=== PATIENT | female | born 1935 | race Caucasian/White ===

== ENCOUNTER → 2017-03-09 14:19 | Outpatient (CLI) | payer MEDICARE, OTHER, SELFPAY | PROVIDERS: Visit Provider Obstetrics & Gynecology | DX: N39.0 Urinary tract infection, site not specified (principal); R32 Unspecified urinary incontinence | CPT/HCPCS: 87077; 87086; 87088; 87186 ==

== ENCOUNTER 2017-05-31 16:39 | Emergency (ER) | payer MEDICARE, OTHER, SELFPAY ==
[2017-05-31 16:40] VITALS: BP 155/82; PULSE 51; RESP 16; TEMP 37.2; O2SAT 98; BMI 24.2
--- NOTE | 2017-05-31 17:01 | CT_ITS ---
STUDY: CT BRAIN WITHOUT CONTRAST REASON FOR EXAM: Female, 81 years old. FELL AND HIT HEAD ON CONCRETE, DOES NOT REMEMBER FALL, ON COUMADIN RADIATION DOSAGE (If Supplied By Facility): CTDIvol = ( 44.99 ) mGy, DLP = ( 745.49 ) mGycm TECHNIQUE: Transaxial CT imaging of the brain was performed without administration of intravenous contrast material. Individualized dose optimization techniques were used for this CT. COMPARISON: None. FINDINGS: There is a posterior scalp hematoma. Normal calvarium. Normal size ventricles and extra-axial spaces for the patient's age. There are areas of decreased attenuation within the white matter tracts of the supratentorial brain, consistent with microvascular disease changes. Normal basal ganglia and thalami. Normal brainstem. Normal cerebellum. There is a small acute subarachnoid hemorrhage of the right parietal lobe superiorly. It measures 17 x 1 mm. There are no findings of an acute ischemic infarction. There is mucosal thickening of the left maxillary sinus. CT/Brain/Head without Contrast IMPRESSION: There is a small acute subarachnoid hemorrhage of the right parietal lobe superiorly. N.B. : The above information has been verbally conveyed by Maggi Callahan MD to Al Xavier on 05/31/2017 18:19:37 (ET). Electronically Signed: Maggi Callahan MD at 18:07 EDT , Service support , N.B. : The above information has been verbally conveyed by Maggi Callahan MD to Al Xavier on 05/31/2017 18:19:37 (ET).
--- NOTE | 2017-05-31 17:05 | RAD_ITS ---
STUDY: X-RAY - PELVIS AND RIGHT HIP REASON FOR EXAM: Female, 81 years old. Fall TECHNIQUE: Radiological exam, hip, unilateral, with pelvis when performed; 2 or 3 views. COMPARISON: None. FINDINGS: There is a non-specific bowel gas pattern. Normal visualized soft tissue structures. There is diffuse osteopenia. There is narrowing with cortical sclerosis and osteophyte formation of the sacroiliac joint consistent with degenerative osteoarthritic changes. Normal bilateral superior and inferior pubic rami. There are degenerative changes of the pubic symphysis with articular narrowing and sclerosis. Normal bilateral ischial tuberosities. Normal visualized femoral head. Normal acetabulum. There is moderate articular joint space narrowing of the hip. RAD/Hip 2-3 Views with Pelvis IMPRESSION: No acute fracture is demonstrated. Electronically Signed: Maggi Callahan MD at 18:10 EDT , Service support ,
[2017-05-31 18:30] VITALS: BP 149/70; PULSE 110; RESP 20; O2SAT 94
[2017-05-31 18:38] LABS: International Normalized Ratio 2.6
--- NOTE | 2017-05-31 19:13 | ED.VISSUMM ---
- ER Visit Summary Date of Service: 05/31/17 Chief Complaint: Fall History of Present Illness: The patient is a [address] Blackwell. She reports that she tripped over dog leash and fell. She landed on her buttocks and hit her ahead. She does not have a loss of consciousness. She complains of a mild headache. However, she is on Coumadin for atrial fibrillation. She does not have a mechanical heart valve. She reports she has pain in her right buttock that is 5-10 severity. She denies any neck, back, shoulder, wrist, or hip pain. She is nauseated, but has not vomited. Physical Examination: Vitals: Stable. Afebrile. Head: Mild tenderness palpation in the occipital area of her scalp. No bleeding, abrasion, or laceration. Neck: No vertebral tenderness. Full ROM without difficulty. Cleared by NEXUS criteria. Back: No vertebral tenderness. General: A&O x 3. NAD. Cardiovascular exam: Tachycardic irregularly irregular rhythm with 2 out of 6 systolic murmur. Respiratory exam: Chest nontender. No crepitus. Clear to auscultation bilaterally. No wheezes or stridor. Abdominal exam: Soft, nontender, nondistended, normal bowel sounds. No pain in RUQ or LUQ specifically. No peritoneal signs. Extremity: Hematoma right buttock that is approximately 6 cm in diameter. No pain with range of motion. Test Results: CT brain shows a 17 x 1 mm right parietal lobe subarachnoid hemorrhage. Right hip/pelvis x-rays are negative. INR is 2.6. Emergency Department Course and Treatment: Patient refused pain medications. She is given K Centra IV and vitamin K p.o. She is remained stable with a normal neurologic exam while here. Treatment Plan: Family asked for transfer to [facility]. She was discussed with the ER physician there Dr. Quintero and the neurosurgeon Dr. Khoury. Disposition: Transferred in serious condition. Impression: 1. Fall. 2. Right parietal lobe subarachnoid hemorrhage, 17 x 1 mm. 3. INR of 2.6. 4. Atrial fibrillation. 5. Critical care time 30 minutes. This note was generated with [employer] dictation software. It may contain incorrect words, spelling, and punctuation that were not noted in review of the chart prior to signing ED Disposition - Plan for ED Patient: Chief Complaint: Head Injury Referrals: Raj Blackwell [Primary Care Provider] -
--- NOTE | 2017-05-31 19:16 | ED.DCSUM_ITS ---
- ER Visit Summary Date of Service: 05/31/17 Chief Complaint: Fall History of Present Illness: The patient is a [address] Blackwell. She reports that she tripped over dog leash and fell. She landed on her buttocks and hit her ahead. She does not have a loss of consciousness. She complains of a mild headache. However, she is on Coumadin for atrial fibrillation. She does not have a mechanical heart valve. She reports she has pain in her right buttock that is 5-10 severity. She denies any neck, back, shoulder, wrist, or hip pain. She is nauseated, but has not vomited. Physical Examination: Vitals: Stable. Afebrile. Head: Mild tenderness palpation in the occipital area of her scalp. No bleeding , abrasion, or laceration. Neck: No vertebral tenderness. Full ROM without difficulty. Cleared by NEXUS criteria. Back: No vertebral tenderness. General: A&O x 3. NAD. Cardiovascular exam: Tachycardic irregularly irregular rhythm with 2 out of 6 systolic murmur. Respiratory exam: Chest nontender. No crepitus. Clear to auscultation bilaterally. No wheezes or stridor. Abdominal exam: Soft, nontender, nondistended, normal bowel sounds. No pain in RUQ or LUQ specifically. No peritoneal signs. Extremity: Hematoma right buttock that is approximately 6 cm in diameter. No pain with range of motion. Test Results: CT brain shows a 17 x 1 mm right parietal lobe subarachnoid hemorrhage. Right hip/pelvis x-rays are negative. INR is 2.6. Emergency Department Course and Treatment: Patient refused pain medications. She is given K Centra IV and vitamin K p.o. She is remained stable with a normal neurologic exam while here. Treatment Plan: Family asked for transfer to [facility]. She was discussed with the ER physician there Dr. Quintero and the neurosurgeon Dr. Khoury. Disposition: Transferred in serious condition. Impression: 1. Fall. 2. Right parietal lobe subarachnoid hemorrhage, 17 x 1 mm. 3. INR of 2.6. 4. Atrial fibrillation. 5. Critical care time 30 minutes. This note was generated with [employer] dictation software. It may contain incorrect words, spelling, and punctuation that were not noted in review of the chart prior to signing ED Disposition - Plan for ED Patient: Chief Complaint: Head Injury Referrals: Raj Blackwell [Primary Care Provider] -
[2017-05-31 19:17] VITALS: BP 154/95; PULSE 112; RESP 14; O2SAT 94
[2017-05-31] MEDS: fentaNYL 100 MCG/2 ML Ampul 25 MCG IV (19:35)
[2017-05-31 19:37] VITALS: BP 137/75; PULSE 113; RESP 19; O2SAT 95
[2017-05-31] MEDS: Phytonadione (Vit K) 10 MG/ML Ampul PO (19:50)
== END 2017-05-31 20:06 | disposition short-term general hospital (02) ==
PROVIDERS: Emergency Provider Emergency Medicine; Family Provider Family Medicine; PCP Family Medicine
DX: S06.6X0A Traumatic subarachnoid hemorrhage without loss of consciousness, initial encounter (principal); I48.91 Unspecified atrial fibrillation; Z79.01 Long term (current) use of anticoagulants; I25.10 Atherosclerotic heart disease of native coronary artery without angina pectoris; I10 Essential (primary) hypertension; E78.00 Pure hypercholesterolemia, unspecified; Z95.1 Presence of aortocoronary bypass graft; Z79.82 Long term (current) use of aspirin; Z79.899 Other long term (current) drug therapy; W01.198A Fall on same level from slipping, tripping and stumbling with subsequent striking against other object, initial encounter; Y93.K1 Activity, walking an animal; Y92.89 Other specified places as the place of occurrence of the external cause; Y99.8 Other external cause status
CPT/HCPCS: 70450; 73502; 85610; 96374; 99285; C9132; J7030; A4216

== ENCOUNTER 2017-12-03 09:13 | Day surgery (SDC) | payer MEDICARE, OTHER, SELFPAY ==
[2017-12-01 14:10] VITALS: BP 134/64; PULSE 46; RESP 16; TEMP 36.9; O2SAT 98; BMI 24.5
[2017-12-01 16:38] LABS: Hematocrit 44.2 % (37-47); Hemoglobin 13.9 g/dl (12.0-15.0); Mean Corp Hgb Conc 31.4 g/gl (32-36); Mean Corpuscular Hgb 30.7 pg (27.0-32.0); Mean Corpuscular Volume 97.6 fL (81-99); Mean Platelet Vol. 10.9 fl (6.2-12.0); Platelet Count 191 K/mm3 (150-450); RBC Distribution Width CV 13.6 % (11.6-14.6); RBC Distribution Width SD 48.8 fl (35.1-43.9); Red Blood Count 4.53 M/mm3 (4.2-5.4); White Blood Count 7.7 K/mm3 (4.4-11.0)
[2017-12-01 16:42] LABS: Scan Indicated on CBC? Y/N NO
[2017-12-01 17:05] LABS: Anion Gap 7 (5-15); BUN 20 mg/dL (7-18); BUN/Creat Ratio 22.6 RATIO (10-20); Calcium,Total 9.5 mg/dL (8.5-10.1); Chloride 101 mmol/L (98-107); Creatinine, Serum 0.89 mg/dL (0.55-1.02); EST Glomerular Filtration Rate 65 mL/min (>60); Est Glom Filt Rate - Afr Amer 78 mL/min (>60); Estimated Creatinine Clearance 40.38 ml/min; Glucose 136 mg/dL (74-106); Potassium 4.1 mmol/L (3.5-5.1); Sodium Level 135 mmol/L (136-145)
[2017-12-03] VITALS (7 sets, daily range): BP systolic 112–151; BP diastolic 58–83; PULSE 71–90; RESP 16–18; TEMP 36.7–37.2; O2SAT 92–96; BMI 24.5
[2017-12-03 10:11] LABS: Bedside Glucose 117 mg/dL (70-110)
[2017-12-03 10:19] LABS: Hemoglobin A1c 6.1 % (4.2-6.3)
[2017-12-03 10:25] LABS: AST(SGOT) 27 U/L (15-37); Alanine Aminotransfer ALT/SGPT 18 U/L (13-56); Cholesterol 188 mg/dL (200); High Density Lipoprotein 39 mg/dL; Thyroid Stim Hormone (TSH) 3.38 uIU/mL (0.358-3.74); Triglycerides 197 mg/dL; Very Low Density Lipoprotein 39 mg/dL (5-40)
[2017-12-03 10:28] LABS: Vitamin B12 564 pg/mL (211-911)
--- NOTE | 2017-12-03 13:22 | PCM.OPRPT ---
Problem List (1) Cystocele Status: Acute Report of Operation Date of Procedure: 12/03/17 Pre-Operative Diagnosis: Cystocele, intolerant to office exams Post-Operative Diagnosis: Cystocele, intolerance to office exam Surgery/Procedure Performed:: EUA, pessary placement Description of Surgical Findings:: cystocele Type of Anesthesia:: MAC Anesthesiologist: Maik Santana Specimen's removed: none Estimated Blood Loss (mL): 0 Fluids Replaced: 300 ml Description of Procedure: Patient was brought to the OR and sign in performed. She was placed in the dorsal supine position and induced under MAC. She was repositioned into dorsal lithotomy. Betadine wash was applied to the perineum given prior hx of laceration at time of pessary placement/removal and sterile draped placed. An examination under anesthesia was performed with cystocele present. A 57mm Gellhorn pessary was placed without difficulty with improved tissue pliability from prior. The patient was awakened and transferred to the recovery room without complication. Sponge counts were correct x 2. - Complications none - Admit VTE Documentation VTE Present on Admission: No VTE Mechan Device Prophylaxis: SCD's VTE Pharm Prophylaxis ordered?: No
--- NOTE | 2017-12-03 13:31 | PCM.DC ---
- Discharge Diagnoses Current Active Problems: Current Active and Chronic Problems Cystocele (Acute) Reason(s) for Visit for Discharge Instructions: Pessary placement You will use the following diet at home:: No restrictions Your food should be the consistency of: Regular Discharge Activity: Return to Normal Activity May resume sexual activity in: No Restrictions Call your doctor if you observe: Shortness of breath, Chest pain, - - Vaginal bleeding, vaginal pain, vaginal discharge Allergies/Adverse Reactions: Allergies furosemide [From Lasix] Allergy (Verified 12/01/17 14:06) Unknown [id number] Reductase Inhibitor Allergy (Verified 12/01/17 14:06) Other Sulfa (Sulfonamide Antibiotics) Allergy (Verified 12/01/17 14:06) Unknown Medications to take at Discharge Acetaminophen [Tylenol] 650 mg PO Q4H PRN PRN 12/17/14 Ascorbic Acid [Vitamin C] 1,000 mg PO DAILY@0800 12/17/14 Aspirin [Adult Low Dose Aspirin EC] 81 mg PO DAILY 12/17/14 Carvedilol [Coreg (Beta Mikhail)] 12.5 mg PO BID 12/17/14 Ezetimibe [Zetia] 10 mg PO DAILY 12/17/14 Ferrous Sulfate 325 mg PO BIDCM 12/17/14 Levothyroxine [Synthroid] 25 mcg PO DAILY 12/17/14 Spironolactone [Aldactone] 12.5 mg PO DAILY 12/17/14 Magnesium Oxide [Mag-Ox 400] 400 mg PO DAILY@0800 #14 tablet 01/22/15 Warfarin [Coumadin] 4 mg PO DAILY@1700 #30 tablet 01/22/15 Omeprazole [Prilosec] 40 mg PO DAILY 05/31/17 Calcium Carb/Vitamin D [Caltrate-600 With Vit D Tab] 1 tab PO DAILY@0800 12/01/17 Vit C/Vit E AC/Lut/Copper/Zinc [Preservision Lutein Softgel] 2 tab PO BID 12/01/17 Primary Care Physician: Raj Blackwell DO [Primary Care Provider] - Test Results: Test results from this visit will be discussed in further detail at your follow-up appointment, if applicable. Please Follow Up With: Liz Hamilton MD - as needed
== END 2017-12-03 14:34 | disposition home or self-care (01) ==
LOC: SDC 09:15 → AC 09:17
PROVIDERS: Family Provider Family Medicine; PCP Family Medicine; Referring Provider Obstetrics & Gynecology; Visit Provider Obstetrics & Gynecology
PROC: (CPT 58120; principal; 2017-12-03 10:55)
DX: N81.10 Cystocele, unspecified (principal); I11.0 Hypertensive heart disease with heart failure; I50.9 Heart failure, unspecified; M19.90 Unspecified osteoarthritis, unspecified site; K21.9 Gastro-esophageal reflux disease without esophagitis; E78.00 Pure hypercholesterolemia, unspecified; F41.9 Anxiety disorder, unspecified; F31.9 Bipolar disorder, unspecified; E06.9 Thyroiditis, unspecified; I25.2 Old myocardial infarction; Z95.1 Presence of aortocoronary bypass graft; Z85.828 Personal history of other malignant neoplasm of skin; Z87.891 Personal history of nicotine dependence; Z79.01 Long term (current) use of anticoagulants; Z79.82 Long term (current) use of aspirin; Z79.899 Other long term (current) drug therapy
CPT/HCPCS: 00940; 57160; 36415; 80048; 80061; 82607; 82962; 83036; 84443; 84450; 84460; 85027; J7120

== ENCOUNTER → 2018-03-30 14:56 | Outpatient (CLI) | payer MEDICARE, OTHER, SELFPAY ==
[2017-12-03 09:43] VITALS: BMI 24.5
== END ==
PROVIDERS: Family Provider Family Medicine; PCP Family Medicine; Referring Provider Family Medicine; Visit Provider Family Medicine
DX: R19.7 Diarrhea, unspecified (principal)
CPT/HCPCS: 87177; 87209; 87493

== ENCOUNTER → 2018-05-05 14:58 | Outpatient (CLI) | payer MEDICARE, OTHER, SELFPAY ==
[2017-12-03 09:43] VITALS: BMI 24.5
[2018-05-05 17:43] LABS: CRP 4.33 mg/L (0.0-3.0)
[2018-05-07 16:08] LABS: Endomysial Antibody IgA Negative (Negative)
[2018-05-10 12:11] LABS: Immunoglobulin A 310 mg/dL (64-422); t-Transglutaminase IgA <2 U/mL (0-3)
== END ==
PROVIDERS: Family Provider Family Medicine; PCP Family Medicine; Referring Provider Internal Medicine Gastroenterology; Visit Provider Internal Medicine Gastroenterology
DX: R19.7 Diarrhea, unspecified (principal)
CPT/HCPCS: 36415; 82784; 83516; 86140; 86255

== ENCOUNTER 2019-10-06 13:36 | Emergency (ER) | payer MEDICARE, OTHER, SELFPAY ==
[2019-10-06 13:36] VITALS: BP 155/74; PULSE 78; RESP 18; TEMP 36.3; O2SAT 93; BMI 22.6
--- NOTE | 2019-10-06 13:40 | CT_ITS ---
STUDY: CT BRAIN WITHOUT CONTRAST REASON FOR EXAM: Female, 83 years old. FALL ON BLOOD THINNERS RADIATION DOSAGE (If Supplied By Facility): CTDIvol = ( 60.81 ) mGy, DLP = ( 1067.08 ) mGycm TECHNIQUE: Transaxial CT imaging of the brain was performed without administration of intravenous contrast material. Individualized dose optimization techniques were used for this CT. COMPARISON: Comparison is made with prior study dated 05/31/2017. FINDINGS: Normal soft tissue structures. Normal calvarium. There is mild cerebral atrophy with widening of the extra-axial spaces and ventricular dilatation. There are areas of decreased attenuation within the white matter tracts of the supratentorial brain, consistent with microvascular disease changes. Stable small bilateral lacunar infarcts in the basal ganglia. Normal brainstem. Normal cerebellum. There is no intracranial hemorrhage. There are no findings of an acute ischemic infarction. Atherosclerotic calcification of the vertebral arteries and cavernous portions of the internal carotid arteries bilaterally. Normal visualized paranasal sinuses. CT/Brain/Head without Contrast IMPRESSION: Chronic involutional changes of the brain. Electronically Signed: Memo Gusman, at 14:13 EDT , Service support ,
[2019-10-06 13:55] VITALS: O2SAT 97
--- NOTE | 2019-10-06 14:08 | ED.DCSUM_ITS ---
- ER Visit Summary Date of Service: 10/06/19 Chief Complaint: Fall, head injury History of Present Illness: The patient is a 83 F who presents after a fall. She states that she lost her balance and fell backwards. She hit the back of her head. This occurred this morning. No LOC. She really has minimal symptoms. She is here because she is on Coumadin for atrial fibrillation. Her INR today is 3.3. She did fall last week as it was another mechanical fall. She has some left rib pain but she had negative x-rays at that time. She still a bit sore in her left chest wall but denies any other symptoms. Physical Examination: Vital signs reviewed. HEENT exam unremarkable. Heart is regular rate and rhythm without murmurs. Lungs are clear to auscultation. Abdomen is soft and nontender. Extremities reveal no edema. Skin exam normal. Neurologic exam normal. GCS 15. Test Results: CAT scan of the head shows chronic changes. Emergency Department Course and Treatment: Patient overall appears well. CAT scan is negative for any traumatic injury. The family states that they will take her to her primary doctor for further testing as to why she keeps falling. Patient looks and feels well does not want stay in the hospital. She will follow-up with her PCP. Treatment Plan: [] Disposition: Discharge Impression: Scalp contusion This note was generated with [employer] dictation software. It may contain incorrect words, spelling, and punctuation that were not noted in review of the chart prior to signing ED Disposition - Plan for ED Patient: Disposition: Home or Assisted Living Instructions: ED Fall Uncertain Cause Referrals: Raj Blackwell DO [Primary Care Provider] -
[2019-10-06 14:53] VITALS: BP 118/63; PULSE 84; RESP 16; O2SAT 97
== END 2019-10-06 14:53 | disposition home or self-care (01) ==
PROVIDERS: Emergency Provider Emergency Medicine; PCP Family Medicine
DX: S00.03XA Contusion of scalp, initial encounter (principal); I48.91 Unspecified atrial fibrillation; W19.XXXA Unspecified fall, initial encounter; Z79.01 Long term (current) use of anticoagulants
CPT/HCPCS: 70450; 99282

== ENCOUNTER 2020-03-23 11:28 | Outpatient (RCR) | payer MEDICARE, OTHER, SELFPAY ==
[2020-03-09 10:26] VITALS: BMI 22.5
== END 2020-03-23 23:59 ==
LOC: IMMUN 11:28
PROVIDERS: PCP Family Medicine; Referring Provider Family Medicine; Visit Provider Family Medicine
DX: Z23 Encounter for immunization (principal)
CPT/HCPCS: 0011A; 0012A; 91301

== ENCOUNTER 2021-02-09 12:42 | Emergency (ER) | payer MEDICARE, OTHER, SELFPAY ==
[2020-03-09 10:26] VITALS: BMI 22.5
[2021-02-09 12:43] VITALS: BP 149/89; PULSE 97; RESP 16; TEMP 37; O2SAT 91; BMI 22.6
--- NOTE | 2021-02-09 12:59 | CT_ITS ---
STUDY: CT BRAIN WITHOUT CONTRAST REASON FOR EXAM: Female, 85 years old. Head injury RADIATION DOSAGE (If Supplied By Facility): CTDIvol = ( 44.99 ) mGy, DLP = ( 796.11 ) mGycm TECHNIQUE: Transaxial CT imaging of the brain was performed without administration of intravenous contrast material. Individualized dose optimization techniques were used for this CT. COMPARISON: 10/06/2019. FINDINGS: Normal soft tissue structures. Normal calvarium. There is mild cerebral atrophy with widening of the extra-axial spaces and ventricular dilatation. There are areas of decreased attenuation within the white matter tracts of the supratentorial brain, consistent with microvascular disease changes. 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 Normal brainstem. Normal cerebellum. There is no intracranial hemorrhage. There are no findings of an acute ischemic infarction. Atherosclerotic calcifications of the cavernous internal carotid arteries. Mucosal thickening of the left maxillary sinus. CT/Brain/Head without Contrast IMPRESSION: 1. Chronic involutional changes of the brain. 2. No acute intracranial process. 3. Mild sinus disease. Electronically Signed: Mundo Gibson, at 13:59 EST Tel , Service support ,
--- NOTE | 2021-02-09 12:59 | CT_ITS ---
STUDY: CT CHEST WITHOUT CONTRAST REASON FOR EXAM: Female, 85 years old. Trauma RADIATION DOSAGE (If Supplied By Facility): CTDIvol = ( 8.60 ) mGy, DLP = ( 249.12 ) mGycm TECHNIQUE: Transaxial imaging was performed without the administration of intravenous contrast material. Individualized dose optimization techniques were used for this CT. COMPARISON: None. FINDINGS: Hypoventilatory changes in the lung bases. Mild bronchiectatic changes in the lower lungs. Right middle lobe calcified granulomas. No evidence of pneumothorax or pleural effusions. No focal infiltrate is seen. Borderline heart size. Status post mediastinotomy and CABG. Coronary calcifications. No evidence of pericardial effusion. Normal mediastinum. Normal hilar regions. Normal unenhanced pulmonary arteries. There is atherosclerotic calcification of the aortic arch with tortuosity and elongation of the aortic arch and descending thoracic aorta. Demineralization of the osseous structures. Increased kyphosis. Mild compression fractures of lower thoracic vertebra probably chronic. Small hiatal hernia. No demonstrated acute osseous changes. CT/Chest without Contrast IMPRESSION: 1. No evidence of pulmonary contusion, pneumothorax or pleural effusions. 2. No demonstrated acute fracture. 3. Status post CABG. Electronically Signed: Mundo Gibson, at 14:16 EST Tel , Service support ,
--- NOTE | 2021-02-09 13:05 | EX.ED.DYSGE1 ---
HPI History of Present Illness Chief Complaint: Fall Detail of Chief Complaint: Fall with head injury and left chest injury Informant: patient Narrative Narrative: Patient emergency department after sustaining a fall this morning. Patient apparently was reaching over to tie a garbage bag and lost her balance and fell and hit her head. Patient is on Coumadin. She sustained a laceration to her left periorbital region. Patient also complaining of pain to her left ribs. She denies shortness of breath. She denies abdominal pain. Patient was able to get up and has been ambulatory. She did not have loss of consciousness. Her last INR was about a month ago. She is unsure of her last tetanus. [facility] Medical History (Updated 02/09/21 @ 14:[address] Catrachita Amador DO) BCC (basal cell carcinoma of skin) Diabetes HTN (hypertension) Hypothyroid SCCA (squamous cell carcinoma) of skin Home Medications acetaminophen [Tylenol] 650 mg PO Q4H PRN PRN 12/17/14 [History Last Taken Unknown] ascorbic acid (vitamin C) [Vitamin C] 1,000 mg PO DAILY@0800 12/17/14 [History Last Taken Unknown] aspirin [Adult Low Dose Aspirin] 81 mg PO DAILY 12/17/14 [History Last Taken Unknown] carvedilol 12.5 mg PO BID 12/17/14 [History Last Taken 12/03/17 07:00] ezetimibe 10 mg PO DAILY 12/17/14 [History Last Taken Unknown] ferrous sulfate 325 mg PO BIDCM 12/17/14 [History Last Taken Unknown] levothyroxine 25 mcg PO DAILY 12/17/14 [History Last Taken 12/03/17 07:00] spironolactone 12.5 mg PO DAILY 12/17/14 [History Last Taken 12/03/17 07:00] magnesium oxide 400 mg PO DAILY@0800 #14 tablet 01/22/15 [Rx Last Taken Unknown] warfarin [Jantoven] 4 mg PO DAILY@1700 #30 tablet 01/22/15 [Rx Last Taken Unknown] calcium carbonate-vitamin D3 [Caltrate-600 With Vit D Tab] 1 tab PO DAILY@0800 12/01/17 [History Last Taken Unknown] vit C-vit S-eaeiym-ccrh-lutein [Preservision Lutein Softgel] 2 tab PO BID 12/01/17 [History Last Taken Unknown] lidocaine HCl 10 ml PO Q2H PRN PRN #1 tube 05/24/20 [Rx Last Taken Unknown] omeprazole 20 mg capsule,delayed release 40 mg PO DAILY PRN 06/07/20 [History Last Taken Unknown] Allergy/AdvReac Type Severity Reaction Status Date / Time furosemide [From Lasix] Allergy Unknown Verified 02/09/21 12:46 Whtfkvu-MWB-KtV Reductase Allergy Other Verified 02/09/21 12:46 Inhibitor [Fqmbffk-Bld-Gfu Reductase Inhibitor] Sulfa (Sulfonamide Allergy Unknown Verified 02/09/21 12:46 Antibiotics) Family History Other No significant family history no significant family Surgical History H/O carotid endarterectomy H/O: hysterectomy History of cholecystectomy S/P triple vessel bypass Social History Smoking Status: Never smoker ROS ROS ED Constitutional Constitutional ED: Reports systems reviewed and no addt'l complaints, except as documented; Denies body ache(s), change in weight or chills Eyes Eyes: Denies acute decrease in peripheral vision, change in vision, double vision or loss of vision ENT ENT ED: Reports none and other Details: Nosebleed, laceration left upper eyelid and upper cheek ; Denies ear pain, lip swelling, loss taste/smell, neck pain, otalgia or sore throat Cardiovascular Cardiovascular: Reports none; Denies abdominal pain, chest pain with activity, leg edema, lightheadedness, palpitations, rapid heart rate or syncope Respiratory/Chest Respiratory/Chest: Reports none; Denies change in mental status, dry cough, dyspnea, hemoptysis, shortness of breath at rest or shortness of breath with exertion Gastrointestinal Gastrointestinal: Reports none; Denies abdominal pain, change in stool character, diarrhea, hematemesis, hematochezia, melena, rectal bleeding or vomiting Genitourinary Genitourinary ED: Reports none; Denies abdominal discomfort, anuria, dysuria, genital pain or polyuria Musculoskeletal Musculoskeletal: Reports none and back pain; Denies arthralgias, difficulty walking, extremity pain, muscle weakness or myalgias Integumentary Reports none; Denies abscess or rash Neurologic Neurologic: Reports none and headache(s); Denies abnormal gait, confusion, focal weakness, frequent falls, loss of vision, numbness, paresthesias, radicular pain, vertigo or weakness Psychiatric Psychiatric: Reports systems reviewed and no addt'l complaints, except as documented and none; Denies behavioral changes, confusion, difficulty concentrating, hallucinations, suicidal ideation, tactile hallucinations or visual hallucinations Endocrine Endocrinology: Denies none, cold intolerance, excessive sweating, fatigue or heat intolerance Hematologic/Lymphatic Hematologic/Lymphatic: Reports none; Denies anemia, easy bleeding or easy bruising Allergic/Immunologic Allergic/Immunologic ED: Denies as per HPI, none, lip swelling, mouth swelling, throat swelling, tongue swelling or hives EXAM Physical Exam Const Vital Signs: 02/09/21 12:43 02/09/21 14:32 Temperature 98.6 F Temperature Source Temporal Pulse Rate 97 Respiratory Rate 16 Respiratory Depth Normal Blood Pressure 149/89 H Blood Pressure Mean 109 Pulse Ox 91 Oxygen Delivery Method Room Air Positive well nourished and well developed General Appearance ED: well developed and NAD HEENT Reports TM's clear and moist mucous membranes HEENT Narrative: Patient has ecchymosis and bruising about the left orbit with a 2.5 cm laceration over the lateral left upper eyelid and 2 cm laceration onto the upper cheek. No bony tenderness on exam. No C-spine tenderness on exam. normocephalic, atraumatic and trauma; Negative for tenderness Tympanic Membrane ED: Yes TM's clear Eyes PERRL and EOMs intact bilaterally General Eye ED: Negative for pale conjunctiva or scleral icterus Neck no lymphadenopathy, supple and no JVD General: Negative for tenderness Chest Wall palpation of chest normal Chest Narrative: Tenderness palpation of posterior left chest wall that reproduces her pain. No subcutaneous emphysema or crepitus noted. Chest: Negative for tenderness Resp normal respiratory effort and clear to auscultation bilaterally Effort and Inspection: Negative for respiratory distress or pain with movement Auscultation: Negative for rhonchi, wheezes or diminished lung sounds Cardio regular rate, regular rhythm, S1 normal heart sound, S2 normal heart sound and no murmurs Peripheral Pulses: pulses 2+ throughout GI normal to inspection, nondistended, normoactive bowel sounds, soft to palpation, non-tender, non-distended and no masses Back/Spine no CVA tenderness and no thoracic nor lumbar tenderness Extremity normal to inspection General Extremety ED: Negative for edema General Extremity: Negative for edema Neuro oriented x3, CN's II-XII intact bilaterally, no sensory deficits noted and gait normal Sensorium / Orientation: awake, alert, oriented to person, oriented to place and oriented to time Motor Exam: strength 5/5 throughout and strength abnormal Psych mental status grossly normal Skin no rashes or lesions noted and no wounds MDM MDM MDM Narrative Medical decision making narrative: CT scan of the brain without contrast was unremarkable. Patient also had CT of chest with no evidence of rib fractures or pneumothorax. INR was 2.4. H&H was unremarkable. Patient advised to follow-up with primary care physician in 5 to 7 days for suture removal. Patient to return if increasing pain, redness, swelling, purulent drainage, or conditions worsen anyway. Lab Data Labs: Laboratory Results - last 24 hr 02/09/21 02/09/21 13:20 13:20 WBC 11.2 H RBC 4.76 Hgb 15.2 H Hct 46.6 MCV 97.9 MCH 31.9 MCHC 32.6 RDW Std Deviation 49.3 H RDW Coeff of Marianela 13.4 Plt Count 159 MPV 10.4 PT 25.7 H INR 2.4 Radiography Diagnostic Testing: Clinical Impression(s) from Imaging Studies Brain CT 02/09/21 12:59 IMPRESSION: 1. Chronic involutional changes of the brain. 2. No acute intracranial process. 3. Mild sinus disease. Electronically Signed: Mundo Gibson at 13:59 EST Tel , Service support , Chest CT 02/09/21 12:59 IMPRESSION: 1. No evidence of pulmonary contusion, pneumothorax or pleural effusions. 2. No demonstrated acute fracture. 3. Status post CABG. Electronically Signed: Mundo Gibson at 14:16 EST Tel , Service support , Procedures Lacerations Left facial laceration: Length: 1.77 in Depth: Sub Q Shape: Linear Prep: Sterile Conditions Laceration repair: Irrigated, Lidocaine, Local and Skin sutures Irrigated (ml): 50 Number of Sutures/Robin: 6 Suture Information: Ethilon, Simple and 6-0 Comment: Patient has 2 lacerations one measuring 2.5 cm and 1 measuring 2 cm with total length of 4.5 cm. Wounds sterilely draped and prepped. Wounds cleansed with Shur-Clens and irrigated with copious saline. Using 6-0 nylon a total of of 6 single interrupted sutures placed with good wound edge approximation. Patient tolerated procedure well Discharge Plan Triage Chief Complaint: Fall ED Provider: Catrachita Amador Dx/Rx/DC Orders Clinical Impression: Fall, Closed head injury, Back contusion, Face lacerations Instructions: ED Mechanical Fall, ED Head Injury (Adult), ED Laceration: All Closures, ED Contusion, Rib Prescriptions: No Action acetaminophen [Tylenol] 325 MG tablet 650 mg PO Q4H PRN PRN (Reason: fever) RF: 0 carvedilol 12.5 MG tablet 12.5 mg PO BID RF: 0 aspirin [Adult Low Dose Aspirin] 81 MG tablet,delayed release (DR/EC) 81 mg PO DAILY RF: 0 spironolactone 25 MG tablet 12.5 mg PO DAILY RF: 0 levothyroxine 25 MCG tablet 25 mcg PO DAILY RF: 0 ascorbic acid (vitamin C) [Vitamin C] 500 MG tablet 1,000 mg PO DAILY@0800 RF: 0 ferrous sulfate 325 MG tablet 325 mg PO BIDCM RF: 0 ezetimibe 10 MG tablet 10 mg PO DAILY RF: 0 warfarin [Jantoven] 4 MG tablet 4 mg PO DAILY@1700 Qty: 30 RF: 0 magnesium oxide 400 MG tablet 400 mg PO DAILY@0800 Qty: 14 RF: 0 omeprazole 20 mg capsule,delayed release(DR/EC) 40 mg PO DAILY PRNRF: 0 vit C-vit T-tzuypm-whyu-lutein [PreserVision Lutein] 1 EACH capsule 2 tab PO BID RF: 0 calcium carbonate-vitamin D3 [Caltrate with Vitamin D3] 1 TAB tablet 1 tab PO DAILY@0800 RF: 0 lidocaine HCl 15 ML solution 10 ml PO Q2H PRN PRN (Reason: pain) Qty: 1 RF: 5 Primary Care Provider: Raj Blackwell Referrals: Raj Blackwell DO [Primary Care Provider] - 5 Days for suture removal Disposition Disposition: Home, Self Care
[2021-02-09 13:30] LABS: Hematocrit 46.6 % (37-47); Hemoglobin 15.2 g/dL (12.0-15.0); Mean Corp Hgb Conc 32.6 g/dL (32-36); Mean Corpuscular Hgb 31.9 pg (27.0-32.0); Mean Corpuscular Volume 97.9 fL (81-99); Mean Platelet Vol. 10.4 fl (6.2-12.0); Platelet Count 159 K/mm3 (150-450); RBC Distribution Width CV 13.4 % (11.6-14.6); RBC Distribution Width SD 49.3 fl (35.1-43.9); Red Blood Count 4.76 M/mm3 (4.2-5.4); White Blood Count 11.2 K/mm3 (4.4-11.0)
[2021-02-09 14:17] LABS: International Normalized Ratio 2.4; Prothrombin Time (Protime)PT. 25.7 SECONDS (11.7-14.9)
[2021-02-09] MEDS: Lidocaine/Epi/Tetracaine 50 ML 1 APPLIC TOPICAL (14:31)
[2021-02-09 15:15] VITALS: BP 129/78
== END 2021-02-09 15:15 | disposition home or self-care (01) ==
PROVIDERS: Emergency Provider Emergency Medicine; PCP Family Medicine
DX: S20.229A Contusion of unspecified back wall of thorax, initial encounter (principal); S01.81XA Laceration without foreign body of other part of head, initial encounter; Z95.1 Presence of aortocoronary bypass graft; W19.XXXA Unspecified fall, initial encounter
CPT/HCPCS: 12013; 70450; 71250; 85027; 85610; 99284

== ENCOUNTER 2022-04-12 07:20 | Emergency (ER) | payer MEDICARE, OTHER, SELFPAY ==
[2020-03-09 10:26] VITALS: BMI 22.5
[2022-04-12 07:20] VITALS: BP 160/88; PULSE 95; RESP 16; TEMP 36.2; O2SAT 94
[2022-04-12 07:29] VITALS: BMI 22.4
--- NOTE | 2022-04-12 07:33 | EX.ED.DYSGE1 ---
HPI History of Present Illness Chief Complaint: General Illness Detail of Chief Complaint: Left eye pain Informant: patient Narrative Narrative: Patient presents the emergency department complaint of left eye pain that started yesterday around 4 PM. Patient thinks the pain came on rather suddenly. She complains of some drainage from the eye and redness. She denies trauma or injury to the eye. She denies foreign body sensation. She does complain of some photophobia. She denies headache currently. She did have pain neck and radiated towards her left ear and druze. Patient is on Coumadin and her last INR was 4 days ago and was 3.0. Patient also states that she had some blood on her diaper pad this morning that is believed to come from urine it was just blood discolored urine that looked like. Patient's had prior hysterectomy. She denies rectal bleeding. Patient today feeling somewhat shaky and more weak than usual. [facility] Medical History (Updated 04/12/22 @ 08:[address] Catrachita Amador, DO) BCC (basal cell carcinoma of skin) Diabetes HTN (hypertension) Hypothyroid SCCA (squamous cell carcinoma) of skin Home Medications acetaminophen 325 mg tablet (Tylenol) 650 mg PO Q4H PRN PRN fever 12/17/14 [History Last Taken Unknown] ascorbic acid (vitamin C) 500 mg tablet (Vitamin C) 1,000 mg PO DAILY@0800 12/17/14 [History Last Taken Unknown] aspirin 81 mg tablet,delayed release (Adult Low Dose Aspirin) 81 mg PO DAILY 12/17/14 [History Last Taken Unknown] carvedilol 12.5 mg tablet 12.5 mg PO BID 12/17/14 [History Last Taken 12/03/17 07:00] ezetimibe 10 mg tablet 10 mg PO DAILY 12/17/14 [History Last Taken Unknown] ferrous sulfate 325 mg (65 mg iron) tablet 325 mg PO BIDCM 12/17/14 [History Last Taken Unknown] levothyroxine 25 mcg tablet 25 mcg PO DAILY 12/17/14 [History Last Taken 12/03/17 07:00] spironolactone 25 mg tablet 12.5 mg PO DAILY 12/17/14 [History Last Taken 12/03/17 07:00] magnesium oxide 400 mg (241.3 mg magnesium) tablet 400 mg PO DAILY@0800 #14 TABLETS 01/22/15 [Rx Last Taken Unknown] warfarin 4 mg tablet (Jantoven) 4 mg PO DAILY@1700 #30 TABLETS 01/22/15 [Rx Last Taken Unknown] calcium carbonate 600 mg-vitamin D3 20 mcg (800 unit) tablet (Caltrate with Vitamin D3) 1 tab PO DAILY@0800 12/01/17 [History Last Taken Unknown] vit C 226 mg-vit E 90 mg-copper 0.8 mg-zinc oxide-lutein 5 mg capsule (PreserVision Lutein) 2 tab PO BID 12/01/17 [History Last Taken Unknown] lidocaine HCl 2 % mucosal solution 10 ml PO Q2H PRN PRN pain #1 tube 05/24/20 [Rx Last Taken Unknown] omeprazole 20 mg capsule,delayed release 40 mg PO DAILY PRN 06/07/20 [History Last Taken Unknown] cephalexin 500 mg capsule 500 mg PO Q6 #28 CAPSULES 04/12/22 [Rx Last Taken Unknown] Allergy/AdvReac Type Severity Reaction Status Date / Time furosemide [From Lasix] Allergy Unknown Verified 02/09/21 12:46 Gbogfft-LCL-GmG Reductase Allergy Other Verified 02/09/21 12:46 Inhibitor [Zyoocwk-Xcb-Qli Reductase Inhibitor] Sulfa (Sulfonamide Allergy Unknown Verified 02/09/21 12:46 Antibiotics) Family History Other No significant family history no significant family Surgical History H/O carotid endarterectomy H/O: hysterectomy History of cholecystectomy S/P triple vessel bypass Social History Smoking Status: Never smoker ROS ROS ED Review of Systems ROS Unobtainable: other Constitutional Constitutional ED: Reports lethargy; Denies chills, fever(s), sweats or weight loss Eyes Eyes: Reports other Details: Pain to left eye and redness and drainage from left eye ; Denies blurry vision, change in vision or diplopia ENT ENT ED: Denies rhinorrhea or sore throat Cardiovascular Cardiovascular: Denies chest pain, orthopnea or racing heartbeat Respiratory/Chest Respiratory/Chest: Denies cough, dyspnea, dyspnea on exertion, orthopnea or sputum Gastrointestinal Gastrointestinal: Denies abdominal pain, diarrhea, nausea or vomiting Genitourinary Genitourinary ED: Reports hematuria; Denies dysuria or urinary frequency Musculoskeletal Musculoskeletal: Denies arthralgias, back pain, myalgias or neck pain Integumentary Denies abscess, Abrasions or rash Neurologic Neurologic: Denies headache(s) or weakness Psychiatric Psychiatric: Denies anxiety, depression or suicidal thoughts Endocrine Endocrinology: Denies polydipsia, polyphagia or polyuria Hematologic/Lymphatic Hematologic/Lymphatic: Denies easy bleeding, easy bruising or lymphadenopathy Allergic/Immunologic Allergic/Immunologic ED: Denies mouth swelling, tongue swelling or urticaria EXAM Physical Exam Const Vital Signs: 04/12/22 07:20 04/12/22 07:22 Temperature 97.2 F L Temperature Source Temporal Pulse Rate 95 Respiratory Rate 16 Respiratory Effort Normal Respiratory Pattern Normal Blood Pressure 160/88 H Blood Pressure Mean 112 Pulse Ox 94 Oxygen Delivery Method Room Air Positive well nourished and well developed General Appearance ED: well developed and NAD HEENT Reports TM's clear and moist mucous membranes normocephalic and atraumatic; Negative for trauma or tenderness Tympanic Membrane ED: Yes TM's clear Eyes PERRL and EOMs intact bilaterally Eyes Narrative: Patient does have conjunctival erythema to the left eye. She does have some yellow-green drainage noted. No foreign bodies noted. General Eye ED: Negative for pale conjunctiva or scleral icterus Neck no lymphadenopathy, supple and no JVD General: Negative for tenderness Chest Wall inspection of chest normal and palpation of chest normal Chest: Negative for tenderness Resp normal respiratory effort and clear to auscultation bilaterally Effort and Inspection: Negative for respiratory distress or pain with movement Auscultation: Negative for rhonchi, wheezes or diminished lung sounds Cardio regular rate, regular rhythm, S1 normal heart sound, S2 normal heart sound and no murmurs Peripheral Pulses: pulses 2+ throughout GI normal to inspection, nondistended, normoactive bowel sounds, soft to palpation, non-tender, non-distended and no masses Back/Spine no CVA tenderness and no thoracic nor lumbar tenderness Extremity normal to inspection General Extremety ED: Negative for edema General Extremity: Negative for edema Neuro oriented x3, CN's II-XII intact bilaterally, no sensory deficits noted and gait normal Sensorium / Orientation: awake, alert, oriented to person, oriented to place and oriented to time Motor Exam: strength 5/5 throughout and strength abnormal Psych mental status grossly normal Skin no rashes or lesions noted and no wounds MDM MDM MDM Narrative Medical decision making narrative: On arrival patient had a visual acuity in the left eye was 20/30 with her eyeglasses on. 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 Patient had the eyelids everted and there was no foreign bodies noted. She had tetracaine applied to the left eye and the eye was stained with fluorescein. Patient was noted to have a corneal abrasion at the 3 o'clock position on the cornea. Patient also had her eye pressure checked and it was 22 in the left eye. Patient had a urine straight cath which did show signs of hematuria and elevated WBCs and +1 bacteria. I did send off a culture. I will start her on Keflex. Her CBC with differential showed a normal white count of 10.5 with a hemoglobin of 15.8. Platelets were 183. INR was 2.6. Chemistries unremarkable. I did discuss case with ophthalmology on-call Dr. Gomez who asked that we refer patient to his office as he is currently in the office and he will see her today. I will start her on gentamicin ophthalmic drops. Patient will be started on Keflex for UTI. Daughter is comfortable taking patient home as she does live with her and can care for her. Daughter will take patient right over to ophthalmology's office. Lab Data Attestation: I reviewed the patient's lab results. Labs: Laboratory Results - last 24 hr 04/12/22 04/12/22 04/12/22 07:49 07:49 07:49 WBC 10.5 RBC 5.03 Hgb 15.8 H Hct 49.6 H MCV 98.6 MCH 31.4 MCHC 31.9 L RDW Std Deviation 47.7 H RDW Coeff of Marianela 13.1 Plt Count 183 MPV 10.6 Immature Gran % (Auto) 0.300 Neut % (Auto) 80.4 H Lymph % (Auto) 11.8 L Stephens % (Auto) 4.9 Eos % (Auto) 2.3 Baso % (Auto) 0.3 Absolute Neuts (auto) 8.5 H Absolute Lymphs (auto) 1.24 Nucleated RBC % 0 PT 27.1 H INR 2.6 Sodium 133 L Potassium 5.2 H Chloride 100 Carbon Dioxide 26.0 Anion Gap 7 BUN 24 H Creatinine 0.89 Estim Creat Clear Calc 33.66 Est GFR (MDRD) Af Amer 77 Est GFR (MDRD) Non-Af 64 BUN/Creatinine Ratio 27.1 H Glucose 147 H Calcium 9.8 Urine Color Urine Clarity Urine pH Ur Specific [place] Urine Protein Urine Glucose (UA) Urine Ketones Urine Occult Blood Urine Nitrite Urine Bilirubin Urine Urobilinogen Ur Leukocyte Esterase Urine RBC Urine WBC Ur Squamous Epith Cells Urine Bacteria Urine Mucus 04/12/22 08:03 WBC RBC Hgb Hct MCV MCH MCHC RDW Std Deviation RDW Coeff of Marianela Plt Count MPV Immature Gran % (Auto) Neut % (Auto) Lymph % (Auto) Stephens % (Auto) Eos % (Auto) Baso % (Auto) Absolute Neuts (auto) Absolute Lymphs (auto) Nucleated RBC % PT INR Sodium Potassium Chloride Carbon Dioxide Anion Gap BUN Creatinine Estim Creat Clear Calc Est GFR (MDRD) Af Amer Est GFR (MDRD) Non-Af BUN/Creatinine Ratio Glucose Calcium Urine Color Yellow Urine Clarity Sl. Cloudy Urine pH 7.0 Ur Specific [place] 1.010 Urine Protein 30 H Urine Glucose (UA) Normal Urine Ketones Negative Urine Occult Blood 250 H Urine Nitrite Negative Urine Bilirubin Negative Urine Urobilinogen Normal Ur Leukocyte Esterase 500 H Urine RBC 50-100 SEEN Urine WBC 50-100 SEEN Ur Squamous Epith Cells 0 SEEN Urine Bacteria 1+ Urine Mucus 0 SEEN Discharge Plan Triage Chief Complaint: General Illness ED Provider: Catrachita Amador Dx/Rx/DC Orders Clinical Impression: Acute left eye pain, Abrasion of cornea, left, Acute UTI, Hematuria Instructions: ED Corneal Abrasion, ED Hematuria, ED Cystitis Female Adult Prescriptions: New cephalexin [cephalexin] 500 mg capsule 500 mg PO Q6 Qty: 28 0RF No Action acetaminophen [Tylenol] 325 MG tablet 650 mg PO Q4H PRN PRN (Reason: fever) carvedilol 12.5 MG tablet 12.5 mg PO BID aspirin [Adult Low Dose Aspirin] 81 MG tablet,delayed release (DR/EC) 81 mg PO DAILY spironolactone 25 MG tablet 12.5 mg PO DAILY levothyroxine 25 MCG tablet 25 mcg PO DAILY ascorbic acid (vitamin C) [Vitamin C] 500 MG tablet 1,000 mg PO DAILY@0800 ferrous sulfate 325 MG tablet 325 mg PO BIDCM ezetimibe 10 MG tablet 10 mg PO DAILY warfarin [Jantoven] 4 MG tablet 4 mg PO DAILY@1700 Qty: 30 0RF magnesium oxide 400 MG tablet 400 mg PO DAILY@0800 Qty: 14 0RF omeprazole 20 mg capsule,delayed release(DR/EC) 40 mg PO DAILY PRN vit W-I-gdoxmj-zinc-lutein [PreserVision Lutein] 1 EACH capsule 2 tab PO BID calcium carbonate-vitamin D3 [Caltrate with Vitamin D3] 1 TAB tablet 1 tab PO DAILY@0800 lidocaine HCl 15 ML solution 10 ml PO Q2H PRN PRN (Reason: pain) Qty: 1 5RF Rx Instructions: apply 2 tsp to inner lip sore, swoosh and spit, q2 hours prn pain Primary Care Provider: Raj Blackwell Referrals: Raj Blackwell DO [Primary Care Provider] - Giacomo Gomez MD [Med Staff - Active Staff] - As soon as possible Activity Restrictions/Additional Instructions: Go directly to the [facility] for evaluation by program writer. Disposition Disposition: Home, Self Care
[2022-04-12 08:02] LABS: Absolute Lymphocyte Count 1.24 X10^3/uL (0.83-4.51); Absolute Neutrophil Count 8.5 X10^3/uL (2.0-7.7); Basophil# 0.03 X10^3/uL; Basophil% 0.3 % (0-1); Eosinophil# 0.24 X10^3/uL; Eosinophils% 2.3 % (0-5); Hematocrit 49.6 % (37-47); Hemoglobin 15.8 g/dL (12.0-15.0); Lymphocyte # 1.24 X10^3/ul (0.83-4.51); Lymphocyte % 11.8 % (19-41); Mean Corp Hgb Conc 31.9 g/dL (32-36); Mean Corpuscular Hgb 31.4 pg (27.0-32.0); Mean Corpuscular Volume 98.6 fL (81-99); Mean Platelet Vol. 10.6 fl (6.2-12.0); Monocyte# 0.52 X10^3/uL; Monocyte% 4.9 % (0-10); NRBC Flagged by Analyzer 0 % (0-5); Neutrophil # 8.46 X10^3/uL (2.7-7.7); Neutrophil % 80.4 % (47-70); Platelet Count 183 K/mm3 (150-450); RBC Distribution Width CV 13.1 % (11.6-14.6); RBC Distribution Width SD 47.7 fl (35.1-43.9); Red Blood Count 5.03 M/mm3 (4.2-5.4); White Blood Count 10.5 K/mm3 (4.4-11.0)
[2022-04-12 08:05] LABS: Mucous, Urine 0 SEEN /hpf (<or=2+); Squamous Epithelial Cells - UA 0 SEEN /hpf (5-10)
[2022-04-12] MEDS: Fluorescein 1 MG STRIP 1 STRIP LEFT EYE (08:06)
[2022-04-12] MEDS: Tetracaine 0.5% Ophthalmic Bottle 1 DRP LEFT EYE (08:06)
[2022-04-12 08:14] LABS: International Normalized Ratio 2.6; Prothrombin Time (Protime)PT. 27.1 SECONDS (11.7-14.9)
[2022-04-12 08:14] LABS: Color, Urine Yellow (Yellow); Glucose, Dipstick Normal (Normal); Ketone-Dipstick Negative (Negative); Leukocyte Esterase-Dipstick 500 /ul (Negative); Nitrite-Dipstick Negative (Negative); Occult Blood-Urine 250 /ul (Negative); Protein-Dipstick 30 mg/dl (Negative); Urine Bilirubin Dipstick Negative (Negative); Urine Clarity Sl. Cloudy (Clear); Urine Urobilinogen Normal (Normal)
[2022-04-12 08:30] LABS: Red Blood Cells-Urine 50-100 SEEN /hpf (0-5); White Blood Cells 50-100 SEEN /hpf (0-5)
[2022-04-12 08:33] LABS: Bacteria 1+ /hpf (None Seen)
[2022-04-12 08:40] LABS: Anion Gap 7 (5-15); BUN 24 mg/dL (7-18); BUN/Creat Ratio 27.1 RATIO (10-20); Calcium,Total 9.8 mg/dL (8.5-10.1); Chloride 100 mmol/L (98-107); Creatinine, Serum 0.89 mg/dL (0.55-1.02); EST Glomerular Filtration Rate 64 mL/min (>60); Est Glom Filt Rate - Afr Amer 77 mL/min (>60); Estimated Creatinine Clearance 33.66 ml/min; Glucose 147 mg/dL (74-106); Potassium 5.2 mmol/L (3.5-5.1); Sodium Level 133 mmol/L (136-145)
[2022-04-12 09:01] VITALS: BP 124/78; PULSE 78; RESP 16; TEMP 36.6; O2SAT 99
[2022-04-12] MEDS: Cephalexin 250 MG Capsule 500 MG PO (09:02)
[2022-04-12] MEDS: Gentamicin Sulfate 1 OPTH.BTL 2 DRP LEFT EYE (09:02)
--- NOTE | 2022-04-14 15:23 | ED.RN ---
UA CULTURE BACK. NEW MEDICATION ORDER CIPRO 500MG 1TAB PO BID X3 DAYS PER DR. CUNNINGHAM. CALLED INTO [facility]. PT DAUGHTER UPDATED ON PRESCRIPTION CHANGE. ALL QUESTIONS ANSWERED.
== END 2022-04-12 09:10 | disposition home or self-care (01) ==
PROVIDERS: Emergency Provider Emergency Medicine; PCP Family Medicine; Visit Provider Emergency Medicine
DX: S05.02XA Injury of conjunctiva and corneal abrasion without foreign body, left eye, initial encounter (principal); N39.0 Urinary tract infection, site not specified; R31.9 Hematuria, unspecified; Z79.01 Long term (current) use of anticoagulants; X58.XXXA Exposure to other specified factors, initial encounter
CPT/HCPCS: 80048; 81001; 85025; 85610; 87077; 87086; 87088; 87186; 99284

== ENCOUNTER 2022-06-14 09:58 | Emergency (ER) | payer MEDICARE, OTHER, SELFPAY ==
[2020-03-09 10:26] VITALS: BMI 22.5
[2022-06-14 09:59] VITALS: BP 141/87; PULSE 83; RESP 16; TEMP 37.1; O2SAT 94; BMI 21.7
--- NOTE | 2022-06-14 10:11 | EDS_ITS ---
HPI History of Present Illness Chief Complaint: Abd Pain Detail of Chief Complaint: Abdominal cramping, bleeding Informant: patient Narrative Narrative: Patient presents with daughter for evaluation of bleeding. Daughter states that her mother was here in March with an eye problem. At that time it was noted that she had a urinary tract infection and noted some blood on her pad. They thought she may be bleeding secondary to her pessary. Once the infection was treated she stopped bleeding. She has noted bleeding again for the past 3 days. She will occasionally get some cramping and pass clots. Patient is unsure if the bleeding is from the vaginal area or rectum, but states it does seem to be more anterior. She is an appointment to see a ADDING MACHINE SERVICER on the . Patient is currently on Coumadin secondary to a history of transient A-fib after her bypass surgery. [facility] Medical History BCC (basal cell carcinoma of skin) Diabetes HTN (hypertension) Hypothyroid Paroxysmal A-fib SCCA (squamous cell carcinoma) of skin Home Medications acetaminophen 325 mg tablet (Tylenol) 650 mg PO Q4H PRN PRN fever 12/17/14 [History Last Taken Unknown] ascorbic acid (vitamin C) 500 mg tablet (Vitamin C) 1,000 mg PO DAILY@0800 12/17/14 [History Last Taken Unknown] aspirin 81 mg tablet,delayed release (Adult Low Dose Aspirin) 81 mg PO DAILY 12/17/14 [History Last Taken Unknown] carvedilol 12.5 mg tablet 12.5 mg PO BID 12/17/14 [History Last Taken 12/03/17 07:00] ezetimibe 10 mg tablet 10 mg PO DAILY 12/17/14 [History Last Taken Unknown] ferrous sulfate 325 mg (65 mg iron) tablet 325 mg PO BIDCM 12/17/14 [History Last Taken Unknown] levothyroxine 25 mcg tablet 25 mcg PO DAILY 12/17/14 [History Last Taken 12/03/17 07:00] spironolactone 25 mg tablet 12.5 mg PO DAILY 12/17/14 [History Last Taken 12/03/17 07:00] magnesium oxide 400 mg (241.3 mg magnesium) tablet 400 mg PO DAILY@0800 #14 TABLETS 01/22/15 [Rx Last Taken Unknown] warfarin 4 mg tablet (Jantoven) 4 mg PO DAILY@1700 #30 TABLETS 01/22/15 [Rx Last Taken Unknown] calcium carbonate 600 mg-vitamin D3 20 mcg (800 unit) tablet (Caltrate with Vitamin D3) 1 tab PO DAILY@0800 12/01/17 [History Last Taken Unknown] vit C 226 mg-vit E 90 mg-copper 0.8 mg-zinc oxide-lutein 5 mg capsule (Preser Vision Lutein) 2 tab PO BID 12/01/17 [History Last Taken Unknown] lidocaine HCl 2 % mucosal solution 10 ml PO Q2H PRN PRN pain #1 tube 05/24/20 [Rx Last Taken Unknown] omeprazole 20 mg capsule,delayed release 40 mg PO DAILY PRN 06/07/20 [History Last Taken Unknown] cephalexin 500 mg capsule 500 mg PO Q6 #28 CAPSULES 04/12/22 [Rx Last Taken Unknown] Allergy/AdvReac Type Severity Reaction Status Date / Time furosemide [From Lasix] Allergy Unknown Verified 06/14/22 09:59 Ejnjdep-GTD-UzN Reductase Allergy Other Verified 06/14/22 09:59 Inhibitor [Nypfnjv-Mgw-Ctr Reductase Inhibitor] Sulfa (Sulfonamide Allergy Unknown Verified 06/14/22 09:59 Antibiotics) Family History Other No significant family history no significant family Surgical History H/O carotid endarterectomy H/O: hysterectomy History of cholecystectomy S/P triple vessel bypass Social History Smoking Status: Former smoker ROS ROS ED Constitutional Constitutional ED: Denies chills or fever(s) Eyes Eyes: Denies change in vision or discharge from eye(s) ENT ENT ED: Denies discharge from eye(s), rhinorrhea or sore throat Cardiovascular Cardiovascular: Denies chest pain or palpitations Respiratory/Chest Respiratory/Chest: Denies cough or dyspnea Gastrointestinal Gastrointestinal: Reports abdominal pain; Denies diarrhea, nausea or vomiting Genitourinary Genitourinary ED: Denies dysuria Musculoskeletal Musculoskeletal: Denies back pain or extremity pain Integumentary Denies Abrasions or rash Neurologic Neurologic: Denies headache(s) or weakness Psychiatric Psychiatric: Denies anxiety or depression Allergic/Immunologic Allergic/Immunologic ED: Denies lip swelling or urticaria EXAM Physical Exam Const Vital Signs: 06/14/22 09:59 06/14/22 12:09 06/14/22 15:11 Temperature 98.7 F Temperature Source Temporal Pulse Rate 83 82 73 Respiratory Rate 16 16 16 Blood Pressure 141/87 H 146/63 H 129/59 H Blood Pressure Mean 105 90 82 Pulse Ox 94 93 92 Oxygen Delivery Method Room Air Room Air Room Air 06/14/22 17:05 Temperature 98 F Temperature Source Temporal Pulse Rate 73 Respiratory Rate 16 Blood Pressure 137/67 H Blood Pressure Mean 90 Pulse Ox 92 Oxygen Delivery Method Room Air Positive well nourished and well developed General Appearance ED: well developed HEENT Reports normocephalic and head/scalp atraumatic Eyes PERRL and EOMs intact bilaterally Neck supple Chest Wall inspection of chest normal and palpation of chest normal Resp normal respiratory effort and clear to auscultation bilaterally Cardio regular rate and regular rhythm GI normal to inspection, nondistended, normoactive bowel sounds Palpation: soft Extremity normal to inspection Neuro oriented x3 and no sensory deficits noted Sensorium / Orientation: alert Motor Exam: strength 5/5 throughout Psych mental status grossly normal Skin no rashes or lesions noted MDM MDM MDM Narrative Medical decision making narrative: I was able to review prior surgical records. Patient had the pessary placed in November 2017 secondary to cystocele. Labwork obtained to evaluate for leukocytosis, anemia, and electrolyte derangement. CT scan of the pelvis with IV contrast obtained due to concern for possible vaginal wall injury with indwelling pessary. EKG obtained to evaluate for cardiac arrhythmia/ischemia. Lab Data Attestation: I reviewed the patient's lab results. Labs: Laboratory Results - last 24 hr 06/14/22 06/14/22 06/14/22 10:15 10:15 10:15 WBC 8.9 RBC 4.47 Hgb 14.1 Hct 45.5 MCV 101.8 H MCH 31.5 MCHC 31.0 L RDW Std Deviation 49.6 H RDW Coeff of Marianela 13.2 Plt Count 180 MPV 10.1 Immature Gran % (Auto) 0.300 Neut % (Auto) 73.4 H Lymph % (Auto) 15.5 L [place] % (Auto) 7.0 Eos % (Auto) 3.4 Baso % (Auto) 0.4 Absolute Neuts (auto) 6.6 Absolute Lymphs (auto) 1.39 Nucleated RBC % 0 PT 25.8 H INR 2.3 Sodium 138 Potassium 4.5 Chloride 103 Carbon Dioxide 29.0 Anion Gap 6 BUN 22 H Creatinine 0.84 Estim Creat Clear Calc 34.48 Est GFR (MDRD) Af Amer 82 Est GFR (MDRD) Non-Af 68 BUN/Creatinine Ratio 26.2 H Glucose 146 H Calcium 9.8 Radiography Diagnostic Testing: Clinical Impression(s) from Imaging Studies Abdomen/Pelvis CT 06/14/22 10:27 IMPRESSION: Suspicious hyperdense blood overlying the anterior wall of the vaginal pessary and suspicious hyperdense blood inside the posterior urinary bladder wall worrisome for posterior bladder wall injury. Electronically Signed: Daniele Bautista MD at 11:27 EDT , ADDENDUM: 06/14/22 1137 IMPRESSION: Suspicious hyperdense blood overlying the anterior wall of the vaginal pessary and suspicious hyperdense blood inside the posterior urinary bladder wall worrisome for posterior bladder wall injury. N.B. : The above Results were Read Back by Daniele Bautista MD to Zahida Rosa MD, and understanding confirmed on 06/14/2022 11:30:12 (ET). Electronically Signed: Daniele Bautista MD at 11:27 EDT , EKG Initial EKG: Attestation: I personally reviewed and interpreted this EKG as follows: Interpretation: Sinus Rhythm (Sinus 80 with first-degree AV block. No acute ST change.) Treatment and Re-Evaluation :: CBC is unremarkable with normal hemoglobin at 14.1. INR is therapeutic at 2.3. Chemistry studies unremarkable. CT scan with IV contrast obtained. I received a phone call from the radiologist with concern for a posterior bladder wall injury. There is suspicious hyperdense blood noted in the anterior wall of the vaginal pessary as well as in the posterior wall the bladder. I spoke with Dr. Dorado, the painter ski edge patient is scheduled to see later this month. She states that if there is any concern for a fistula and wall injury she would need to be transferred to a larger facility with more specialized surgeons. I spoke with patient and daughter at bedside. Patient is given 5 mg of p.o. vitamin K to reverse her INR. EKG today confirms the patient is still in sinus rhythm. Patient's first choice was [facility]. They are not excepting transfers at this time due to holding admissions in the ER. [facility] in [place] declined the patient feeling that she needed more specialized surgeons. Patient has been accepted at [facility]. She will be sent to ER to ER to be evaluated by the residents. Discharge Plan Triage Chief Complaint: Abd Pain Other Complaint: GI Bleed ED Provider: Zahida Rosa Dx/Rx/DC Orders Clinical Impression: Vesico-vaginal fistula Prescriptions: No Action acetaminophen [Tylenol] 325 MG tablet 650 mg PO Q4H PRN PRN (Reason: fever) carvedilol 12.5 MG tablet 12.5 mg PO BID aspirin [Adult Low Dose Aspirin] 81 MG tablet,delayed release (DR/EC) 81 mg PO DAILY spironolactone 25 MG tablet 12.5 mg PO DAILY levothyroxine 25 MCG tablet 25 mcg PO DAILY ascorbic acid (vitamin C) [Vitamin C] 500 MG tablet 1,000 mg PO DAILY@0800 ferrous sulfate 325 MG tablet 325 mg PO BIDCM ezetimibe 10 MG tablet 10 mg PO DAILY warfarin [Jantoven] 4 MG tablet 4 mg PO DAILY@1700 Qty: 30 0RF magnesium oxide 400 MG tablet 400 mg PO DAILY@0800 Qty: 14 0RF omeprazole 20 mg capsule,delayed release(DR/EC) 40 mg PO DAILY PRN vit V-B-pcfdxq-zinc-lutein [PreserVision Lutein] 1 EACH capsule 2 tab PO BID calcium carbonate-vitamin D3 [Caltrate with Vitamin D3] 1 TAB tablet 1 tab PO DAILY@0800 lidocaine HCl 15 ML solution 10 ml PO Q2H PRN PRN (Reason: pain) Qty: 1 5RF Rx Instructions: apply 2 tsp to inner lip sore, swoosh and spit, q2 hours prn pain cephalexin [cephalexin] 500 mg capsule 500 mg PO Q6 Qty: 28 0RF Primary Care Provider: Raj Blackwell Referrals: Raj Blackwell DO [Primary Care Provider] - Disposition Disposition: Acute Care Hospital Discharge Location: [facility]
[2022-06-14 10:26] LABS: Absolute Lymphocyte Count 1.39 X10^3/uL (0.83-4.51); Absolute Neutrophil Count 6.6 X10^3/uL (2.0-7.7); Basophil# 0.04 X10^3/uL; Basophil% 0.4 % (0-1); Eosinophils% 3.4 % (0-5); Hematocrit 45.5 % (37-47); Hemoglobin 14.1 g/dL (12.0-15.0); Lymphocyte # 1.39 X10^3/ul (0.83-4.51); Lymphocyte % 15.5 % (19-41); Mean Corpuscular Hgb 31.5 pg (27.0-32.0); Mean Corpuscular Volume 101.8 fL (81-99); Mean Platelet Vol. 10.1 fl (6.2-12.0); Monocyte# 0.63 X10^3/uL; NRBC Flagged by Analyzer 0 % (0-5); Neutrophil # 6.55 X10^3/uL (2.7-7.7); Neutrophil % 73.4 % (47-70); Platelet Count 180 K/mm3 (150-450); RBC Distribution Width CV 13.2 % (11.6-14.6); RBC Distribution Width SD 49.6 fl (35.1-43.9); Red Blood Count 4.47 M/mm3 (4.2-5.4); White Blood Count 8.9 K/mm3 (4.4-11.0)
--- NOTE | 2022-06-14 10:27 | CT_ITS ---
We are attempting to reach an attending provider to discuss findings. An addendum with communication details will be sent when the communication is complete. EXAM: CT ABDOMEN AND PELVIS WITH INTRAVENOUS CONTRAST CLINICAL INDICATION: Vag bleeding, Pessary TECHNIQUE: Helically acquired images were obtained of the abdomen and pelvis with intravenous contrast. This CT exam was performed using one or more of the following dose reduction techniques: automated exposure control, adjustment of the mA and/or kV according to patient size, and/or use of iterative reconstruction technique. CONTRAST: IV 75mL Isovue-370 RADIATION DOSE: CTDIvol = 13.48 mGy, DLP = 562.67 mGy-cm COMPARISON: No relevant prior studies available. FINDINGS: LOWER THORAX: Calcified granuloma in the right peripheral lung base. Pulmonary hyperinflation suggestive of COPD. Median sternotomy from CABG procedure. No cardiomegaly. No significant pericardial effusion. ABDOMEN: LIVER: Unremarkable. Homogeneous. No focal mass. GALLBLADDER AND BILE DUCTS: Unremarkable. No calcified gallstones. No gallbladder distention or wall edema. No intra- or extrahepatic biliary ductal dilation. PANCREAS: Unremarkable. No focal cystic or solid mass. SPLEEN: Unremarkable. Normal size without focal cystic or solid mass. ADRENALS: Unremarkable. No nodules. KIDNEYS AND URETERS: Unremarkable. Normal renal size and position. No hydronephrosis. STOMACH AND BOWEL: Unremarkable. No stomach or bowel distention. No focal inflammatory change. PELVIS: APPENDIX: Normal. BLADDER: Unremarkable. REPRODUCTIVE: Vaginal pessary in place with suspicious hyperdense blood overlying the anterior surface and hyperdense blood in the posterior urinary bladder. ABDOMEN and PELVIS: INTRAPERITONEAL SPACE: Unremarkable. No ascites or other fluid collection. No free air. BONES/JOINTS: Moderate old compression fractures of the T12 and L1 vertebral bodies. No suspicious lytic or blastic abnormality. SOFT TISSUES: Unremarkable. No discrete abdominal or pelvic wall hernia. VASCULATURE: Unremarkable. Abdominal aorta is non-dilated. LYMPH NODES: Unremarkable. No enlarged lymph nodes. CT/Abdomen/Pelvis W IV Cont ONLY IMPRESSION: Suspicious hyperdense blood overlying the anterior wall of the vaginal pessary and suspicious hyperdense blood inside the posterior urinary bladder wall worrisome for posterior bladder wall injury. Electronically Signed: Daniele Bautista MD at 11:27 EDT ,
[2022-06-14 10:38] LABS: Anion Gap 6 (5-15); BUN 22 mg/dL (7-18); BUN/Creat Ratio 26.2 RATIO (10-20); Calcium,Total 9.8 mg/dL (8.5-10.1); Chloride 103 mmol/L (98-107); Creatinine, Serum 0.84 mg/dL (0.55-1.02); EST Glomerular Filtration Rate 68 mL/min (>60); Est Glom Filt Rate - Afr Amer 82 mL/min (>60); Estimated Creatinine Clearance 34.48 ml/min; Glucose 146 mg/dL (74-106); Potassium 4.5 mmol/L (3.5-5.1); Sodium Level 138 mmol/L (136-145)
[2022-06-14 10:47] LABS: International Normalized Ratio 2.3; Prothrombin Time (Protime)PT. 25.8 SECONDS (11.7-14.9)
--- NOTE | 2022-06-14 11:24 | EKG12_ITS ---
Test Reason : DYSRHYTHMIA Blood Pressure : / mmHG Vent. Rate : 080 BPM Atrial Rate : 080 BPM P-R Int : 278 ms QRS Dur : 140 ms QT Int : 428 ms P-R-T Axes : 056 -50 072 degrees QTc Int : 493 ms Sinus rhythm with 1st degree A-V block Left axis deviation Non-specific intra-ventricular conduction block Minimal voltage criteria for LVH, may be normal variant ( Forrest product ) Cannot rule out Inferior infarct , age undetermined Cannot rule out Anterior infarct , age undetermined Abnormal ECG Confirmed by HERVE BRAXTON, TANNER ([id number]), editor map BIRD ADAMS ([id number]) on 06/16/2022 2:47:26 PM Referred By: OCTAVIO Confirmed By:MARK EDGAR MD
[2022-06-14 12:09] VITALS: BP 146/63; PULSE 82; RESP 16; O2SAT 93
[2022-06-14] MEDS: Phytonadione (Vit K1) 5 MG TABLET PO (12:34)
[2022-06-14 15:11] VITALS: BP 129/59; PULSE 73; RESP 16; O2SAT 92
[2022-06-14 17:05] VITALS: BP 137/67; PULSE 73; RESP 16; TEMP 36.6; O2SAT 92
--- NOTE | 2022-06-14 17:10 | NURSING ---
PT BEING TRANSFERRED TO [facility]-- SET UP TRANSPORTATION WITH PHYSICIANS ETA GIVEN WAS 3 HOURS--
[2022-06-14 20:30] VITALS: BP 140/64; PULSE 72; RESP 15; TEMP 37.1; O2SAT 92
[2022-06-14 20:31] VITALS: BP 140/64; PULSE 71; RESP 15; O2SAT 91
== END 2022-06-14 22:25 | disposition short-term general hospital (02) ==
PROVIDERS: Emergency Provider Emergency Medicine; PCP Family Medicine; Visit Provider Emergency Medicine
DX: N82.8 Other female genital tract fistulae (principal); I48.0 Paroxysmal atrial fibrillation; Z87.891 Personal history of nicotine dependence; Z95.1 Presence of aortocoronary bypass graft; Z79.01 Long term (current) use of anticoagulants
CPT/HCPCS: 74177; 80048; 85025; 85610; 93005; 99282; Q9967

== ENCOUNTER 2022-09-18 17:41 | Emergency (ER) | payer MEDICARE, OTHER, SELFPAY ==
[2020-03-09 10:26] VITALS: BMI 22.5
[2022-09-18] VITALS (7 sets, daily range): BP systolic 132–152; BP diastolic 46–92; PULSE 101–104; RESP 16–32; TEMP 35.9–36.8; O2SAT 83–98; BMI 20.9
--- NOTE | 2022-09-18 18:30 | EKG12_ITS ---
Test Reason : Dysrhythmia Blood Pressure : / mmHG Vent. Rate : 102 BPM Atrial Rate : 102 BPM P-R Int : 208 ms QRS Dur : 150 ms QT Int : 406 ms P-R-T Axes : 000 -19 092 degrees QTc Int : 529 ms Sinus tachycardia with occasional Premature ventricular complexes Left bundle branch block Abnormal ECG Confirmed by HERVE BRAXTON, TANNER ([id number]), editorial specialist ROSSY TIDWELL ([id number]) on 09/22/2022 8:25:47 AM Referred By: Marcial Confirmed By:MARK EDGAR MD
--- NOTE | 2022-09-18 18:30 | CT_ITS ---
EXAM: CT CHEST, ABDOMEN AND PELVIS WITH INTRAVENOUS CONTRAST CLINICAL INDICATION: abdominal pain/hypoxia TECHNIQUE: Helically acquired images were obtained of the chest, abdomen and pelvis with intravenous contrast. This CT exam was performed using one or more of the following dose reduction techniques: automated exposure control, adjustment of the mA and/or kV according to patient size, and/or use of iterative reconstruction technique. CONTRAST: 75 ML 100 370 ISOVUE RADIATION DOSE: CTDIvol = 15.74 mGy, DLP = 757.94 mGy-cm COMPARISON: 06/14/2022 FINDINGS: LIMITATIONS: Exam is limited by improper positioning of patient''s arms resulting in significant streak artifact. CHEST: LUNGS AND PLEURAL SPACES: Diffuse interstitial thickening along with areas of mild groundglass pulmonary density throughout both lungs, most consistent with diffuse interstitial and mild alveolar edema. Atypical inflammatory process is not excluded. Interstitial fibrosis is not excluded. Hyperexpansion of lungs consistent with severe COPD. Trace pleural effusions and thickening in both posterior costophrenic angles. No mass. No pneumothorax. HEART: Mild cardiomegaly. Previous CABG. Coronary artery calcifications noted. No pericardial effusion. MEDIASTINUM: Calcified mediastinal lymph nodes. Esophagus is unremarkable. No hiatal hernia. THYROID: Unremarkable. No thyroid lesions. ABDOMEN: LIVER: Unremarkable. Homogeneous. No focal mass. GALLBLADDER AND BILE DUCTS: Cholecystectomy. No intra- or extrahepatic biliary ductal dilation. PANCREAS: Unremarkable. No focal cystic or solid mass. SPLEEN: Unremarkable. Normal size without focal cystic or solid mass. ADRENALS: Unremarkable. No nodules. KIDNEYS AND URETERS: Perinephric stranding of the right kidney. There is new hydronephrosis of the right kidney and ureter which was not present previously. There is no definite distal obstructing stone, but as the right ureter approaches and enters the posterior bladder wall, there is prominent soft tissue thickening across the posterior bladder wall and inflammatory processes or neoplasm posterior bladder, not excluded. Extensive scarring of both kidneys, stable. STOMACH AND BOWEL: Evaluation of the GI tract is limited by absence of oral contrast. Cannot exclude stomach wall thickening. No dilated loops of bowel or evidence for obstruction. Cannot exclude segmental thickening of the amado of the small or large bowel. Cannot exclude enteritis or colitis. Appendix within normal limits. PELVIS: APPENDIX: No evidence of acute appendicitis. BLADDER: Abnormal urinary bladder with diffuse bladder wall thickening especially posteriorly. Infiltrating processes including neoplasm not excluded. REPRODUCTIVE: Unremarkable as visualized. No mass. CHEST, ABDOMEN and PELVIS: INTRAPERITONEAL SPACE: Unremarkable. No ascites or other fluid collection. No free air. BONES/JOINTS: Severe diffuse demineralization. Exaggerated thoracic kyphosis and numerous compression fractures of indeterminate age, likely old. Severe demineralization throughout the lumbar spine with compression fractures of all of the thoracolumbar lumbar vertebrae, stable since previous study. No suspicious lytic or blastic abnormality. SOFT TISSUES: See above. VASCULATURE: Heavily calcified tortuous thoracic aorta. No aneurysm or dissection. Heavily calcified abdominal aorta and iliac arteries. No obvious central pulmonary embolism although this study was not performed with the pulmonary embolism protocol. LYMPH NODES: Unremarkable. No enlarged lymph nodes. CT/CT Chest, Abd, Pel w/Contrast IMPRESSION: 1. Limited as above. 2. 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 Pulmonary fibrosis and atypical inflammatory process is not excluded. 3. Right hydronephrosis and hydroureter related to prominent irregular thickening of the wall of the posterior bladder. There is also more diffuse bladder wall thickening and findings could be inflammatory or neoplastic. 4. Numerous other chronic findings as above grossly stable. Electronically Signed: Sky Reed MD at 21:33 EDT ,
[2022-09-18] MEDS: 0.9% Normal Saline 1,000 ML 999 ML IV ×2 (18:40→21:23)
[2022-09-18] MEDS: Morphine 4 MG/ML Syringe IV ×2 (18:41→21:23)
[2022-09-18] MEDS: Ondansetron 4 MG/2 ML Vial IV ×2 (18:41→21:23)
[2022-09-18 18:54] LABS: Absolute Lymphocyte Count 1.71 X10^3/uL (0.83-4.51); Absolute Neutrophil Count 14.1 X10^3/uL (2.0-7.7); Basophil# 0.07 X10^3/uL; Basophil% 0.4 % (0-1); Eosinophil# 0.21 X10^3/uL; Eosinophils% 1.2 % (0-5); Hematocrit 48.4 % (37-47); Hemoglobin 14.8 g/dL (12.0-15.0); Lymphocyte # 1.71 X10^3/ul (0.83-4.51); Mean Corp Hgb Conc 30.6 g/dL (32-36); Mean Corpuscular Volume 101.5 fL (81-99); Mean Platelet Vol. 9.5 fl (6.2-12.0); Monocyte# 0.93 X10^3/uL; Monocyte% 5.4 % (0-10); NRBC Flagged by Analyzer 0 % (0-5); Neutrophil % 82.5 % (47-70); Platelet Count 271 K/mm3 (150-450); RBC Distribution Width CV 13.2 % (11.6-14.6); RBC Distribution Width SD 49.5 fl (35.1-43.9); Red Blood Count 4.77 M/mm3 (4.2-5.4); White Blood Count 17.1 K/mm3 (4.4-11.0)
--- NOTE | 2022-09-18 18:54 | EDS_ITS ---
HPI HPI - GI History of Present Illness Chief Complaint: Nausea/Vomiting Narrative Narrative: 86-year-old female presenting with lower abdominal pain which started about 130. She is been vomiting since about that time as well. Patient has not had a fever. Patient recently had her bladder scraped for concern for bladder tumor. She she states that this was done transurethrally on 09/05/2022. This was performed by Dr. Maury Sebastian at [facility]. Patient did not have any pain until today. Patient states that in transport it was noted that her oxygen was low so she was put on 4 L. She typically does not have to wear oxygen. She has not had a cough or shortness of breath. [facility] Medical History BCC (basal cell carcinoma of skin) Diabetes HTN (hypertension) Hypothyroid Paroxysmal A-fib SCCA (squamous cell carcinoma) of skin Home Medications acetaminophen 325 mg tablet (Tylenol) 650 mg PO Q4H PRN PRN fever 12/17/14 [History Last Taken Unknown] ascorbic acid (vitamin C) 500 mg tablet (Vitamin C) 1,000 mg PO DAILY@0800 12/17/14 [History Last Taken Unknown] aspirin 81 mg tablet,delayed release (Adult Low Dose Aspirin) 81 mg PO DAILY 12/17/14 [History Last Taken Unknown] carvedilol 12.5 mg tablet 12.5 mg PO BID 12/17/14 [History Last Taken 12/03/17 07:00] ezetimibe 10 mg tablet 10 mg PO DAILY 12/17/14 [History Last Taken Unknown] ferrous sulfate 325 mg (65 mg iron) tablet 325 mg PO BIDCM 12/17/14 [History Last Taken Unknown] levothyroxine 25 mcg tablet 25 mcg PO DAILY 12/17/14 [History Last Taken 12/03/17 07:00] spironolactone 25 mg tablet 12.5 mg PO DAILY 12/17/14 [History Last Taken 12/03/17 07:00] magnesium oxide 400 mg (241.3 mg magnesium) tablet 400 mg PO DAILY@0800 #14 TABLETS 01/22/15 [Rx Last Taken Unknown] warfarin 4 mg tablet (Jantoven) 4 mg PO DAILY@1700 #30 TABLETS 01/22/15 [Rx Last Taken Unknown] calcium carbonate 600 mg-vitamin D3 20 mcg (800 unit) tablet (Caltrate with Vitamin D3) 1 tab PO DAILY@0800 12/01/17 [History Last Taken Unknown] vit C 226 mg-vit E 90 mg-copper 0.8 mg-zinc oxide-lutein 5 mg capsule (PreserVision Lutein) 2 tab PO BID 12/01/17 [History Last Taken Unknown] lidocaine HCl 2 % mucosal solution 10 ml PO Q2H PRN PRN pain #1 tube 05/24/20 [Rx Last Taken Unknown] omeprazole 20 mg capsule,delayed release 40 mg PO DAILY PRN 06/07/20 [History Last Taken Unknown] cephalexin 500 mg capsule 500 mg PO Q6 #28 CAPSULES 04/12/22 [Rx Last Taken Unknown] Allergy/AdvReac Type Severity Reaction Status Date / Time furosemide [From Lasix] Allergy Unknown Verified 09/18/22 17:44 [id number] Reductase Allergy Other Verified 09/18/22 17:44 Inhibitor [Klaflca-Pcy-Qpn Reductase Inhibitor] Sulfa (Sulfonamide Allergy Unknown Verified 09/18/22 17:44 Antibiotics) Family History Other No significant family history no significant family Surgical History H/O carotid endarterectomy H/O: hysterectomy History of cholecystectomy S/P triple vessel bypass Social History Smoking Status: Former smoker ROS ROS ED Constitutional Constitutional ED: Denies chills or fever(s) ENT ENT ED: Denies rhinorrhea or sore throat Cardiovascular Cardiovascular: Denies chest pain or palpitations Respiratory/Chest Respiratory/Chest: Reports dyspnea; Denies cough Gastrointestinal Gastrointestinal: Reports abdominal pain, nausea and vomiting Genitourinary Genitourinary ED: Denies dysuria or hematuria Musculoskeletal Musculoskeletal: Denies arthralgias Integumentary Denies abscess or Abrasions Neurologic Neurologic: Denies headache(s) Psychiatric Psychiatric: Denies anxiety or depression EXAM Physical Exam Const Vital Signs: 09/18/22 17:41 09/18/22 18:06 09/18/22 18:06 Temperature 96.7 F L 98.3 F Temperature Source Temporal Temporal Pulse Rate 101 H 101 H 102 H Respiratory Rate 20 H 20 H 16 Blood Pressure 135/46 H 152/92 H 152/92 H Blood Pressure Mean 75 112 112 Pulse Ox 86 83 90 Oxygen Delivery Method Room Air Room Air Nasal Cannula Oxygen Flow Rate (L/min) 4 09/18/22 18:29 09/18/22 19:05 09/18/22 19:05 Temperature 98.3 F Temperature Source Oral Pulse Rate 103 H Respiratory Rate 20 H Blood Pressure 145/86 H Blood Pressure Mean 105 Pulse Ox 95 94 Oxygen Delivery Method Nasal Cannula Nasal Cannula Nasal Cannula Oxygen Flow Rate (L/min) 4 4 4 Positive well nourished Constitutional Narrative: Hypoxic at 86% and General Appearance ED: Negative for pallor HEENT Reports moist mucous membranes normocephalic and atraumatic Eyes PERRL and EOMs intact bilaterally Resp Resp Narrative: Tachypneic. Diminished breath sounds and crackles at the right lung base Cardio regular rate and regular rhythm GI Palpation: tender RLQ and periumbilical Neuro CN's II-XII intact bilaterally, moves all extremities and no sensory deficits noted Sensorium / Orientation: alert Motor Exam: strength 5/5 throughout Psych mental status grossly normal and thought process normal Skin no wounds General Skin Exam: Negative for jaundice or pallor MDM MDM MDM Narrative Medical decision making narrative: Patient presenting with abdominal pain. She had recent surgery still differential includes postoperative infection, UTI, pyelonephritis, appendicitis, colitis, diverticulitis, bowel obstruction, bowel perforation, malignancy, or in addition to this the patient is also hypoxic and has abnormal breath sounds in the right lung base I suspect aspiration pneumonia. Will obtain an EKG, high-sensitivity troponin, chest x-ray. Since patient is tachycardic, tachypneic and hypoxic I will start a septic workup. Patient was given IV fluids, morphine, Zofran. CBC shows a leukocytosis of 17.1. Hemoglobin macular stable. Platelets are normal. Creatinine slightly elevated 1.15 today. This is just above her normal baseline. Sodium slightly low at 130. GFR is 47. BUN/creatinine ratio is 26.1. Patient is given 2 L of IV fluids. Glucose 196 without anion gap urinalysis not consistent with infection. Since the patient is hypoxic I did treat her as an aspiration pneumonia and broad-spectrum coverage with vancomycin and Zosyn given she is having abdominal pain as well. Patient was given several doses of morphine here in the ER. She remains normotensive and slightly tachycardic. Still hypoxic at 94% on 4 L now. Chest x-ray on my interpretation does not show any acute pneumonia. Since I will obtain a CT of the abdomen pelvis I will obtain a CT with chest abdomen pelvis to rule out pneumonia. CT of the chest concerning for possible pneumonia. CT of the abdomen pelvis shows an obstruction of the ureter on the right secondary to possible malignancy. There is no identified stone. This is likely why she has the abdominal pain. I discussed this with Dr. Velazquez who is internal medicine at [facility]. I did discuss that she will need to be transferred and see Dr. Sebastian. Did accept transfer. They state they do have a bed and they will call back with assignment. Patient consented for transfer. She is updated on all information. Impression: 1. Right ureteral obstruction 2. Right hydronephrosis 3. Aspiration pneumonia 4. Leukocytosis Lab Data Attestation: I reviewed the patient's lab results. Labs: Laboratory Results - last 24 hr 09/18/22 09/18/22 18:42 19:00 WBC 17.1 H RBC 4.77 Hgb 14.8 Hct 48.4 H MCV 101.5 H MCH 31.0 MCHC 30.6 L RDW Std Deviation 49.5 H RDW Coeff of Marianela 13.2 Plt Count 271 MPV 9.5 Immature Gran % (Auto) 0.500 Neut % (Auto) 82.5 H Lymph % (Auto) 10.0 L [place] % (Auto) 5.4 Eos % (Auto) 1.2 Baso % (Auto) 0.4 Absolute Neuts (auto) 14.1 H Absolute Lymphs (auto) 1.71 Nucleated RBC % 0 PT 24.7 H INR 2.2 APTT 42.5 H Sodium 130 L Potassium 4.5 Chloride 97 L Carbon Dioxide 25.0 Anion Gap 8 BUN 30 H Creatinine 1.15 H Estim Creat Clear Calc 24.29 Est GFR (MDRD) Af Amer 57 L Est GFR (MDRD) Non-Af 47 L BUN/Creatinine Ratio 26.1 H Glucose 196 H Lactic Acid 1.4 Calcium 10.5 H Total Bilirubin 0.30 AST 39 H ALT 30 Alkaline Phosphatase 81 Troponin I High Sens 20 Total Protein 7.6 Albumin 3.4 Globulin 4.2 Albumin/Globulin Ratio 0.8 L Urine Color Yellow Urine Clarity Cloudy Urine pH 6.5 Ur Specific [place] 1.020 Urine Protein 100 H Urine Glucose (UA) Normal Urine Ketones 5 H Urine Occult Blood 250 H Urine Nitrite Negative Urine Bilirubin Negative Urine Urobilinogen Normal Ur Leukocyte Esterase 500 H Urine RBC > 100 SEEN Urine WBC 10-25 SEEN Ur Squamous Epith Cells 0-5 SEEN Urine Bacteria RARE Urine Mucus 0 SEEN Radiography Diagnostic Testing: Clinical Impression(s) from Imaging Studies Chest/Abdomen/Pelvis CT 09/18/22 18:30 IMPRESSION: 1. Limited as above. 2. 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 Pulmonary fibrosis and atypical inflammatory process is not excluded. 3. Right hydronephrosis and hydroureter related to prominent irregular thickening of the wall of the posterior bladder. There is also more diffuse bladder wall thickening and findings could be inflammatory or neoplastic. 4. Numerous other chronic findings as above grossly stable. Electronically Signed: Sky Reed MD at 21:33 EDT , Chest X-Ray 09/18/22 19:10 IMPRESSION: Moderate diffuse chronic fibrosis, stable since previous CT scan. No definite acute chest disease. Electronically Signed: Sky Reed MD at 19:34 EDT , Discharge Plan Triage Chief Complaint: Nausea/Vomiting ED Provider: Chris Ceja Dx/Rx/DC Orders Prescriptions: No Action acetaminophen [Tylenol] 325 MG tablet 650 mg PO Q4H PRN PRN (Reason: fever) carvedilol 12.5 MG tablet 12.5 mg PO BID aspirin [Adult Low Dose Aspirin] 81 MG tablet,delayed release (DR/EC) 81 mg PO DAILY spironolactone 25 MG tablet 12.5 mg PO DAILY levothyroxine 25 MCG tablet 25 mcg PO DAILY ascorbic acid (vitamin C) [Vitamin C] 500 MG tablet 1,000 mg PO DAILY@0800 ferrous sulfate 325 MG tablet 325 mg PO BIDCM ezetimibe 10 MG tablet 10 mg PO DAILY warfarin [Jantoven] 4 MG tablet 4 mg PO DAILY@1700 Qty: 30 0RF magnesium oxide 400 MG tablet 400 mg PO DAILY@0800 Qty: 14 0RF omeprazole 20 mg capsule,delayed release(DR/EC) 40 mg PO DAILY PRN vit D-C-oslmsj-zinc-lutein [PreserVision Lutein] 1 EACH capsule 2 tab PO BID calcium carbonate-vitamin D3 [Caltrate with Vitamin D3] 1 TAB tablet 1 tab PO DAILY@0800 lidocaine HCl 15 ML solution 10 ml PO Q2H PRN PRN (Reason: pain) Qty: 1 5RF Rx Instructions: apply 2 tsp to inner lip sore, swoosh and spit, q2 hours prn pain cephalexin [cephalexin] 500 mg capsule 500 mg PO Q6 Qty: 28 0RF Primary Care Provider: Raj Blackwell Referrals: Raj Blackwell DO [Primary Care Provider] -
[2022-09-18 19:09] LABS: Color, Urine Yellow (Yellow); Glucose, Dipstick Normal (Normal); Ketone-Dipstick 5 mg/dl (Negative); Leukocyte Esterase-Dipstick 500 /ul (Negative); Mucous, Urine 0 SEEN /hpf (<or=2+); Nitrite-Dipstick Negative (Negative); Occult Blood-Urine 250 /ul (Negative); Protein-Dipstick 100 mg/dl (Negative); Urine Bilirubin Dipstick Negative (Negative); Urine Clarity Cloudy (Clear); Urine Urobilinogen Normal (Normal); Urine pH 6.5 (5.0 - 8.0)
--- NOTE | 2022-09-18 19:10 | RAD_ITS ---
STUDY: X-RAY CHEST REASON FOR EXAM: Female, 86 years old. hypoxia TECHNIQUE: Single AP portable view of the chest. COMPARISON: CT scan 02/09/2021 FINDINGS: The lungs are hyperexpanded. There are coarsened interstitial markings suggestive of moderate chronic fibrosis. No gross focal infiltrates. No gross effusions. Normal size heart. Previous CABG. Normal mediastinum and [place]. Normal visualized pulmonary arteries. There is atherosclerotic calcification of the aortic arch with tortuosity. There are diffuse degenerative changes of the visualized thoracic spine. There is degenerative osteoarthritis of the bilateral shoulders. There is no demonstrated abnormality of the visualized soft tissue structures of the upper abdomen. RAD/Chest 1 View (Portable) IMPRESSION: Moderate diffuse chronic fibrosis, stable since previous CT scan. No definite acute chest disease. Electronically Signed: Syk Reed MD at 19:34 EDT ,
[2022-09-18 19:13] LABS: International Normalized Ratio 2.2; Prothrombin Time (Protime)PT. 24.7 SECONDS (11.7-14.9)
[2022-09-18 19:14] LABS: Partial Thromboplast Time 42.5 Seconds (24.1-36.2)
[2022-09-18 19:18] LABS: ALB/GLOB Ratio 0.8 RATIO (0.9-2.4); AST(SGOT) 39 U/L (15-37); Alanine Aminotransfer ALT/SGPT 30 U/L (13-56); Albumin, Serum 3.4 g/dL (3.2-5.0); Alkaline Phosphatase 81 U/L (45-117); Anion Gap 8 (5-15); BUN 30 mg/dL (7-18); BUN/Creat Ratio 26.1 RATIO (10-20); Calcium,Total 10.5 mg/dL (8.5-10.1); Chloride 97 mmol/L (98-107); Creatinine, Serum 1.15 mg/dL (0.55-1.02); EST Glomerular Filtration Rate 47 mL/min (>60); Est Glom Filt Rate - Afr Amer 57 mL/min (>60); Estimated Creatinine Clearance 24.29 ml/min; Globulin 4.2 g/dL (2.2-4.2); Glucose 196 mg/dL (74-106); Lactic Acid 1.4 mmol/L (0.4-1.9); Potassium 4.5 mmol/L (3.5-5.1); Protein, Total 7.6 g/dL (6.4-8.2); Sodium Level 130 mmol/L (136-145); Troponin-I HS 20 pg/mL (3.0-54.0)
[2022-09-18 19:25] LABS: Red Blood Cells-Urine > 100 SEEN /hpf (0-5)
[2022-09-18 19:27] LABS: Bacteria RARE /hpf (None Seen); Squamous Epithelial Cells - UA 0-5 SEEN /hpf (5-10); White Blood Cells 10-25 SEEN /hpf (0-5)
--- NOTE | 2022-09-18 22:33 | ED.RN ---
pt's o2 sats decrease to 84% on 6L nc. respiratory and dr crowell notified
--- NOTE | 2022-09-18 22:36 | ED.RN ---
[facility] WITH [facility]YS[facility] GAVE ETA OF 7HRS AT 2235. TO CALL BACK WITH POSSIBLE OUTSOURCE
--- NOTE | 2022-09-18 23:38 | ED.RN ---
REPORT CALLED TO [facility][1] AT THIS TIME.
[2022-09-19] VITALS: BP 128/72; PULSE 106; RESP 29; O2SAT 97
[2022-09-19 01:00] VITALS: BP 129/71; PULSE 106; RESP 22; O2SAT 95
[2022-09-19 02:00] VITALS: BP 120/72; PULSE 100; RESP 13; O2SAT 96
[2022-09-19 03:00] VITALS: BP 106/76; PULSE 96; PULSE 97; RESP 15; RESP 19; O2SAT 96
[2022-09-19 04:00] VITALS: BP 107/75; PULSE 96; RESP 16; O2SAT 95
[2022-09-19 05:00] VITALS: BP 111/66; PULSE 93; RESP 19; O2SAT 97
== END 2022-09-19 05:33 | disposition short-term general hospital (02) ==
LOC: ED 18:22
PROVIDERS: Emergency Provider Student in an Organized Health Care Education/Training Program; PCP Family Medicine; Visit Provider Student in an Organized Health Care Education/Training Program
DX: N13.2 Hydronephrosis with renal and ureteral calculous obstruction (principal); J69.0 Pneumonitis due to inhalation of food and vomit; D72.829 Elevated white blood cell count, unspecified; R10.30 Lower abdominal pain, unspecified; Z87.891 Personal history of nicotine dependence
CPT/HCPCS: 96365; 96366; 96367; 96375; 96376; 71045; 71260; 74177; 80053; 81001; 83605; 84484; 85025; 85610; 85730; 87040; 87086; 93005; 99285; J7030; J7050; Q9967; A4216; J2405